=== PATIENT | male | born 1995 | race Caucasian/White ===

== ENCOUNTER 2019-03-23 18:00 | Emergency (ER) | payer OTHER ==
[~2019-03-23] VITALS: Ht 170.2 cm; Wt 66.7 kg
[2019-03-23] MEDS ORDERED: INTESTINEX680 M1 PO (23:54)
[2019-03-23] MEDS ORDERED: PEPCID AC20 MG PO (23:54)
[2019-03-23] MEDS ORDERED: KETO10TA2 PO (23:54)
[2019-03-23] MEDS ORDERED: LEVSIN/SL0.125 MG SL (23:54)
== END 2019-03-24 00:09 | disposition home or self-care (01) ==
LOC: ER 18:00
DX: I88.0 Nonspecific mesenteric lymphadenitis (principal); R10.31 Right lower quadrant pain; R50.9 Fever, unspecified

== ENCOUNTER → 2020-04-27 | Emergency (ER) | payer OTHER ==
[~2020-04-27] VITALS: Ht 170.2 cm; Wt 66.7 kg
[~2020-04-27] MED LIST: CARAFATE1 GM PO; CIPRO500 MG PO; INTESTINEX680 M1 PO; KETO10TA2 PO; LEVSIN/SL0.125 MG SL; PEPCID AC20 MG PO
== END | disposition home or self-care (01) ==
LOC: ER 18:50
DX: R10.84 Generalized abdominal pain (principal)
CPT/HCPCS: 74178; Q9965

== ENCOUNTER 2023-02-23 17:49 | Emergency (ER) | payer OTHER ==
[~2023-02-23] VITALS: Ht 170.2 cm; Wt 71.2 kg
[2023-02-23] MEDS ORDERED: ALLEGRA ALLERGY60 MG (18:00)
[2023-02-23] MEDS ORDERED: MUPIROCIN1 G1 TOP (18:30)
== END 2023-02-23 18:32 | disposition home or self-care (01) ==
LOC: ER 17:49
DX: L02.91 Cutaneous abscess, unspecified (principal)